=== PATIENT | male | born 1930 | race Caucasian/White ===

== ENCOUNTER → 2018-09-11 | Outpatient (CLI) | payer MEDICARE, OTHER ==
--- NOTE | 2018-09-11 11:36 | REP ---
BILATERAL LOWER EXTREMITY DUPLEX DOPPLER VENOUS ARTERIAL ULTRASOUND: Real-time ultrasound evaluation and duplex Doppler interrogation of bilateral lower extremity arterial systems is performed. There is moderate to moderately severe atherosclerotic plaquing throughout the arterial system of the left lower extremity with a somewhat lesser degree of moderate diffuse atherosclerotic plaquing and narrowing throughout the right lower extremity arterial system. Biphasic waveforms are seen throughout the right lower extremity arterial system with monophasic waveforms throughout the left lower extremity. There are decreased flow velocities bilaterally, more so on the left than on the right, suggesting more proximal disease. Tardus parvus waveforms are seen throughout the left lower extremity. DYLON is not performed bilaterally as the vessels are not compressible. 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 Electronically Signed by Hugo Montano MD 09/11/2018 04:23 P
== END ==
LOC: M RAD 08:47
PROVIDERS: ATTEND Family Medicine
DX: I73.9 Peripheral vascular disease, unspecified (principal)